=== PATIENT | male | born 1970 | race Hispanic/Latino ===

== ENCOUNTER 2018-02-28 08:24 | Outpatient (CLI) | payer BC | END 2018-02-28 08:25 | disposition home or self-care (01) | LOC: BICRAD 08:24 | PROVIDERS: ATTEND Internal Medicine Rheumatology | DX: M45.0 Ankylosing spondylitis of multiple sites in spine (principal); M47.894 Other spondylosis, thoracic region; M47.892 Other spondylosis, cervical region; Z98.890 Other specified postprocedural states | CPT/HCPCS: 72052; 72070; 72100 ==

== ENCOUNTER 2024-09-01 07:23 | Outpatient (CLI) | payer BC | END 2024-09-01 07:24 | disposition home or self-care (01) | LOC: SCSMRI 07:23 | PROVIDERS: ATTEND Nurse Practitioner Family | DX: M50.11 Cervical disc disorder with radiculopathy, high cervical region (principal); M50.122 Cervical disc disorder at C5-C6 level with radiculopathy; M50.123 Cervical disc disorder at C6-C7 level with radiculopathy | CPT/HCPCS: 72141 ==